=== PATIENT | female | born 1955 | race Caucasian/White ===

== ENCOUNTER 2017-09-18 05:22 | Emergency (ER) | payer BC ==
[~2017-09-18] VITALS: Ht 160 cm; Wt 131.5 kg
--- NOTE | 2017-09-18 05:45 | NUR ---
BIBSELF C/O RIGHT SHOULDER PAIN RADIATING TO THE R SIDE OF THE NECK, WORSE WHEN MOVING TO THE RIGHT SIDE SINCE 9PM, WORSE NOW. TOOK VICODIN 10:30PM. DENIES TRAUMA. HX FROZEN SHOULDER. PT IS AAOX4. SKIN WNL. RESP EVEN AND UNLABORED. NO S/S OF ACUTE DISTRESS NOTED. VSS. PT SAFERY AND COMFORT MEASURES IN PLACE. PT PLACED ON MONITOR AND POX. BEDSIDE FOR EVAL.
[2017-09-18] MEDS ORDERED: ONDANSETRON HCL/PF 4 MG/2 ML VIAL ONE (05:47)
[2017-09-18] MEDS ORDERED: MORPHINE SULFATE INJ 4 MG/ML DISP.SYRIN ONE (05:49)
[2017-09-18] MEDS ORDERED: MORPHINE SULFATE INJ 2 MG/ML DISP.SYRIN IV ONE (06:00)
[2017-09-18] MEDS ORDERED: ONDANSETRON HCL/PF 4 MG/2 ML VIAL IVP ONE (06:00)
[2017-09-18] MEDS ORDERED: CARISOPRODOL 350 MG TABLET PO ONE (06:30)
[2017-09-18] MEDS ORDERED: CARISOPRODOL 350 MG TABLET ONE (06:33)
--- NOTE | 2017-09-18 06:39 | NUR ---
Patient discharged to home in stable condition. Written and verbal after care instructions along with RX given. Patient verbalizes understanding of instruction.IV removed. Catheter intact and site benign. Pressure and 4x4 applied to site. No bleeding noted. VSS upon discharge. Pt's family bedside with pt.
[2017-09-18 06:40] VITALS: BP 151/89
== END 2017-09-18 06:42 | disposition home or self-care (01) ==
LOC: ER 05:23
DX: M25.511 Pain in right shoulder (principal); I10 Essential (primary) hypertension; Z88.8 Allergy status to other drugs, medicaments and biological substances
CPT/HCPCS: 73030; 93005; 96374; 96375; 99284; A4606; J2270; J2405; Z7610